=== PATIENT | female | born 1975 | race Caucasian/White ===

== ENCOUNTER → 2017-01-29 | Outpatient (CLI) | payer BC ==
[~2017-01-29] MED LIST: ENBR25IN2 SQ; OXYC-360 PO; PERC5TAB12 PO; STOO100C PO; Z.0.NO CURRENT MEDS; ZOFR8TAB PO
--- NOTE | 2017-01-30 16:51 | EKG ---
Date Performed: 01/29/2017 Time Performed: 13:29:40 PTAGE: 41 years EKG: SINUS BRADYCARDIA POSSIBLE LEFT ATRIAL ENLARGEMENT POSSIBLE RIGHT VENTRICULAR CONDUCTION DE LAY BORDERLINE ECG NO PREVIOUS TRACING DOCTOR: Chetan Brower Interpretating Date/Time 01/30/2017 16:48:31
== END ==
LOC: CPRE 12:52
PROVIDERS: ATTEND Obstetrics & Gynecology
DX: Z01.810 Encounter for preprocedural cardiovascular examination (principal); N84.0 Polyp of corpus uteri; N92.0 Excessive and frequent menstruation with regular cycle; N94.6 Dysmenorrhea, unspecified; R94.31 Abnormal electrocardiogram [ECG] [EKG]
CPT/HCPCS: 93005

== ENCOUNTER 2017-01-31 10:52 | Observation (INO) | payer BC ==
--- NOTE | 2017-01-30 17:21 | MH ---
cc: TIM CARR DATE OF ADMISSION: 01/31/2017 DATE OF : 1975 ADMITTING DIAGNOSIS: Menorrhagia with possible endometrial polyps. HISTORY OF PRESENT ILLNESS: The patient is a 41 year-old white female, Para 2-0-0-2, returned for annual visit on 07/11/2016 for increasing menstrual flow, lasting 7 days with cramping, often bleed through a super tampon every 2 hours. Her vaginal ultrasound from 12/14/2016 showed a possible fundal polyp, left ovarian cyst. She is now admitted for surgical evaluation. PAST MEDICAL HISTORY/PREVIOUS SURGERY: She had repair of nasal fracture 1990. Breast augmentation 2001 MEDICATIONS medications are Vitamins Enbrel ALLERGIES SULFA TRANSFUSIONS None. OBSTETRICAL HISTORY Two vaginal deliveries. SOCIAL HISTORY: She is to a dentist. Alcohol occasional, tobacco none. Drugs none. FAMILY HISTORY: Noncontributory. PHYSICAL EXAMINATION: IN GENERAL: This is a well nourished, well-developed, black female. VITAL SIGNS: Stable. HEAD, EYES, EARS, NOSE, AND THROAT: Examination is normal. CHEST: The chest is clear. HEART: Regular rate. BREASTS: The breasts are symmetrical. ABDOMEN: Benign. GYNECOLOGY: Pelvic exam normal external genitalia and Bartholin's, urethral, and [place]'s, vagina is normal. Cervix is normal. Uterus is normal size and shape. Adnexa nonpalpable. ASSESSMENT: As above. PLAN: She is now admitted for D&C frozen section, laparoscopy, probable LASH procedure. All the procedures, the risks and complications and they would like to proceed. MD CALE Henry/tracey /2:51 PM /5:13 PM
[~2017-01-31] VITALS: Ht 162.6 cm; Wt 60.1 kg
[~2017-01-31 10:52] MED LIST changes: +BUPIVACAINE LIPOSOME PF 1.3% 20 ML VIAL ONE; -OXYC-360 PO; -PERC5TAB12 PO; -STOO100C PO; -Z.0.NO CURRENT MEDS; -ZOFR8TAB PO
[2017-01-31 11:30] VITALS: BP 106/73; PULSE 47; RESP 16; TEMP 98.2; O2SAT 99
[2017-01-31] MEDS ORDERED: ACETAMINOPHEN 1000 MG/100 ML VIAL IV ONE ×2 (11:32→12:12)
[2017-01-31] MEDS ORDERED: ceFAZolin INJ 1,000 MG VIAL ONE (11:32)
[2017-01-31] MEDS ORDERED: SODIUM CHLORIDE 0.9% INJ 100 ML ONE (11:32)
[2017-01-31] MEDS ORDERED: ACETAMINOPHEN 1000 MG/100 ML VIAL IV SCH (11:45)
[2017-01-31] MEDS ORDERED: POVIDONE IODINE 5% (ANTISEPSIS KIT) 4 APPLICATIONS EACH NARE PRN (11:45)
[2017-01-31] MEDS ORDERED: CHLORHEXIDINE GLUCONATE 2 % 1 PACK (2 CLOTHS) TOPICAL PRN (11:45)
[2017-01-31] MEDS ORDERED: LACTATED RINGER'S 1000 ML IV PRN (11:45)
[2017-01-31] MEDS ORDERED: ceFAZolin 1,000 MG/NS 100 ML IV SCH ×2 (11:45)
[2017-01-31] MEDS ORDERED: SODIUM CHLORID 0.9% 500 ML IV PRN (11:45)
[2017-01-31] MEDS ORDERED: INSULIN HUMAN REGULAR 1,000 UNITS/10 ML VIAL SQ PRN (11:45)
[2017-01-31] MEDS ORDERED: METOPROLOL TARTRATE 25 MG TAB PO PRN (11:45)
[2017-01-31] MEDS ORDERED: KETOROLAC TROMETHAMINE 60 MG/2 ML (IM) VIAL IM ONE (12:00)
[2017-01-31] MEDS ORDERED: NEOSTIGMINE 3 MG/3 ML SYR IV ONE (12:00)
[2017-01-31] MEDS ORDERED: PROPOFOL 200 MG/20 ML AMP IV ONE (12:00)
[2017-01-31] MEDS ORDERED: ONDANSETRON HCL 4 MG/2 ML VIAL IV PUSH ONE (12:00)
[2017-01-31] MEDS ORDERED: LACTATED RINGER'S 1000 ML INJ 1,000 ML IV ONE (12:00)
[2017-01-31] MEDS ORDERED: FAMOTIDINE 20 MG/2 ML VIAL ONE (12:12)
[2017-01-31] MEDS ORDERED: DEXAMETHASONE SOD PHOS 4 MG/ML VIAL ONE (12:12)
[2017-01-31] MEDS ORDERED: MIDAZOLAM HCL 2 MG/2 ML VIAL ONE (12:12)
[2017-01-31] MEDS ORDERED: fentaNYL CITRATE 250 MCG/5 ML AMP ONE (12:15)
[2017-01-31] MEDS ORDERED: SODIUM CHLORIDE 0.9% FLUSH 10 ML FLUSH IV FLUSH PRN (14:30)
[2017-01-31] MEDS ORDERED: ZOLPIDEM TARTRATE 5 MG TAB PO PRN (14:30)
[2017-01-31] MEDS ORDERED: HYDROmorphone HCL PF 1 MG/ML VIAL IV PRN (14:30)
[2017-01-31] MEDS ORDERED: hydrOXYzine PAMOATE 25 MG CAP PO PRN (14:30)
[2017-01-31] MEDS ORDERED: diphenhydrAMINE HCL 25 MG CAP PO PRN (14:30)
[2017-01-31] MEDS ORDERED: PROMETHAZINE HCL 25 MG TAB PO PRN (14:30)
[2017-01-31] MEDS ORDERED: ONDANSETRON ODT 4 MG TAB PO PRN (14:30)
[2017-01-31] MEDS ORDERED: ONDANSETRON HCL 4 MG/2 ML VIAL IV PRN (14:30)
[2017-01-31] MEDS: D5-1/2 NS + KCL 20 MEQ INJ 1,000 ML IV SCH ×2 (15:00→22:00)
[2017-01-31] MEDS ORDERED: ONDANSETRON INJ 8 MG in DEXTROSE 5% IN WATER INJ 50 ML IV PRN ×2 (15:15)
[2017-01-31] MEDS ORDERED: DO NOT ADM ANY ANTICOAGULANT DRUGS PRN (15:15)
[2017-01-31 16:00] VITALS: O2SAT 98
[2017-01-31] MEDS ORDERED: KETOROLAC TROMETHAMINE 30 MG/ML (IVP) VIAL IVP SCH (16:00)
[2017-01-31] MEDS ORDERED: DOCUSATE SODIUM 100 MG CAP PO SCH (16:00)
[2017-01-31 16:30] VITALS: BP 107/70; PULSE 45; RESP 16; TEMP 97.9
[2017-01-31 17:33] LABS: HEMATOCRIT 40.8 % (35.0-46.0); REVIEW FLAG FINAL
[2017-01-31 20:00] VITALS: BP_SYST 100; BP_SYST 94; BP_DIAS 62; BP_DIAS 68; PULSE 52; PULSE 83; RESP 18; TEMP 98.1
[2017-01-31] MEDS ORDERED: SODIUM CHLORIDE 0.9% FLUSH 10 ML FLUSH IV FLUSH SCH (21:00)
[2017-01-31] MEDS: ACETAMINOPHEN 1000 MG/100 ML VIAL IV SCH (21:05)
[2017-01-31] MEDS: KETOROLAC TROMETHAMINE 30 MG/ML (IVP) VIAL IVP SCH (21:06)
[2017-01-31 22:00] VITALS: BP 96/62; PULSE 50; RESP 18; TEMP 98.5
[2017-02-01 03:50] VITALS: BP 88/54; PULSE 53; RESP 18; TEMP 97.9
[2017-02-01] MEDS: KETOROLAC TROMETHAMINE 30 MG/ML (IVP) VIAL IVP SCH ×2 (03:58→09:52)
[2017-02-01] MEDS: ACETAMINOPHEN 1000 MG/100 ML VIAL IV SCH (03:59)
[2017-02-01 06:01] LABS: AUTOMATED NEUTROPHIL # 8.3 TH/MM3 (1.8-7.7); BASOPHIL # 0.1 TH/MM3 (0-0.2); BASOPHIL % 0.6 % (0.0-2.0); EOSINOPHIL # 0.1 TH/MM3 (0-0.4); EOSINOPHIL % 0.7 % (0.0-4.0); HEMATOCRIT 37.1 % (35.0-46.0); HEMO FLAGS DIFF FINAL; LYMPH % 17.8 % (9.0-44.0); MEAN CELL VOLUME 91.9 FL (80.0-100.0); MEAN CORPUSCULAR HEMOGLOBIN 30.8 PG (27.0-34.0); MEAN CORPUSCULAR HGB CONC 33.5 % (32.0-36.0); MONO % 5.4 % (0.0-8.0); NEUT % 75.5 % (16.0-70.0); PLATELET COUNT 258 TH/MM3 (150-450); RED BLOOD COUNT 4.03 MIL/MM3 (4.00-5.30); RED CELL DISTRIBUTION WIDTH 14.9 % (11.6-17.2)
[2017-02-01 06:27] LABS: BICARBONATE 29.8 MEQ/L (21.0-32.0); POTASSIUM 4.4 MEQ/L (3.5-5.1)
[2017-02-01 08:10] VITALS: BP 91/65; PULSE 58; RESP 16; TEMP 98.3
--- NOTE | 2017-02-01 08:23 | HHI.DCPOC ---
Discharge Care Plan Report Symptoms to Your Doctor -Temperature above 100.5 degrees -Redness, of incision or excessive or foul smelling drainage -Unusual pain or calf pain -Increased vaginal bleeding -Painful or difficulty urinating -Feelings of extreme sadness or anxiety after 2 weeks Goals to Promote Your Health * To prevent worsening of your condition and complications * To maintain your health at the optimal level Directions to Meet Your Goals Take your medications as prescribed Follow your dietary instruction Follow activity as directed Ensure plenty of rest for recovery Drink fluids for hydration Keep your appointments as scheduled Take your immunizations and boosters as scheduled If your symptoms worsen call your PCP, if no PCP go to Urgent Care Center or Emergency Room Smoking is Dangerous to Your Health. Avoid second hand smoke Call the 24-hour crisis hotline for domestic abuse at Apolinar Wilde MD Feb 01, 2017 08:23
[2017-02-01] MEDS ORDERED: IBUPROFEN 600 MG TAB PO PRN (09:45)
[2017-02-01] MEDS ORDERED: PERC5TAB12 PO (10:12)
[2017-02-01] MEDS ORDERED: ZOFR8TAB PO (10:12)
--- NOTE | 2017-02-02 09:42 | MP ---
cc: TIM CARR DATE OF SURGERY: 01/31/2017 PREOPERATIVE DIAGNOSIS Menorrhagia, dysmenorrhea, polyps. POSTOPERATIVE DIAGNOSIS Menorrhagia, dysmenorrhea, polyps, probable fibroids. PROCEDURE D&C followed by LASH and bilateral salpingectomy. ANESTHESIA General endotracheal. SURGEON Tim Carr MD CONFERENCE SERVICES MANAGER ERICK Adames ESTIMATED BLOOD LOSS About 100 cc. FLUIDS One liter crystalloid. OBJECTIVE FINDINGS Following the induction of adequate general endotracheal anesthesia the patient was prepped and draped supine on the operating table in the dorsal lithotomy position, in the usual sterile fashion with the bladder being drained via Garcia catheterization. Exam under anesthesia revealed about a 12 week size anterior uterus, adnexa nonpalpable. A heavy weighted speculum was placed in the posterior fornix of the vagina. The anterior lip of the cervix was grasped with a single-tooth tenaculum. The cervix and uterus sounded to 9 cm. The cervix was dilated to 18 Hanks dilator. Endocervical curettings were obtained with a small serrated curette for permanent study, endometrium with a small sharp curette and polyp forceps used to remove small polypoid tissue. This was sent for frozen section. The tenaculum sites were sutured with 3-0 chromic for hemostasis. The vaginal instruments were removed. The brine tank separator operator's gloves were changed. The abdomen was opened through a 3 cm curving infraumbilical incision using a knife to cut down through the skin to the fascia. The fascia was opened transversely and stripped from the muscles. The rectus muscle was split in the midline and the peritoneum opened sharply. Palpation was normal. A GelPort was placed. The laparoscope was inserted. A 5 mm port was placed in the left lower quadrant and AirSeal in the right lower quadrant. The uterus was about 12 weeks' size, globular with the approximately of small fibroids, normal tubes, normal ovaries, normal cul-de-sacs, normal liver edge. Working first on the left a Harmonic scalpel was used to take the left mesosalpinx, left round ligament, left broad ligament, left side of the bladder flap and left uterine vessels. The same on the right. The Harmonic scalpel is now used to amputate the fundus from the cervix. Frozen section returned benign. The fundus was extracted with a pouch which is exteriorized to allow for hand morcellation of the fundus inside the bag with no spillage. Irrigation was performed. One area of bleeding on the right side of the cervix was controlled with a single Quill stitch of 2-0 Vicryl. The ureters were inspected with good peristalsis. The operative site was coated with Evicel. The GelPort was now removed. The peritoneum was sutured with running 2-0 Vicryl, the fascia with a running locking stitch of 0 Vicryl from corner to midline and tied, subcu with 3-0 Vicryl and skin with running subcuticular 3-0 Monocryl. The scope was now reinserted in the lower ports and used to inspect the GelPort site which was well-closed. There is no bleeding. The scope was removed, gas was allowed to escape. The small ports were removed and sutured with 3-0 Monocryl. Dermabond was applied. All counts were correct. The patient was awakened and taken to the recovery room in good condition. MD CALE Henry/DARRIN /2:29 PM /9:35 AM
== END 2017-02-01 11:15 | disposition home or self-care (01) ==
LOC: HSDC 10:52 → HSDI 14:22 → H1EA 16:16
PROVIDERS: ADMIT Obstetrics & Gynecology; ATTEND Obstetrics & Gynecology
DX: N92.0 Excessive and frequent menstruation with regular cycle (principal); N94.6 Dysmenorrhea, unspecified; N72 Inflammatory disease of cervix uteri; N94.89 Other specified conditions associated with female genital organs and menstrual cycle; R10.2 Pelvic and perineal pain; D25.9 Leiomyoma of uterus, unspecified
CPT/HCPCS: 00840; 58544; 80048; 85014; 85018; 85025; 88305; 88307; 88331; C9290; G0378; J0131; J0690; J1100; J1885; J2250; J2405; J2710; J3010; J3480; J7120